=== PATIENT | male | born 2000 | race Caucasian/White ===

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

== ENCOUNTER 2021-11-22 02:36 | Emergency (ER) | payer BC ==
[~2021-11-22] VITALS: Ht 165.1 cm; Wt 74.4 kg
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
[2021-11-22] MEDS ORDERED: ONDANSETRON 4 MG TAB.RAPDIS ONE (03:59)
[2021-11-22] MEDS ORDERED: IBUPROFEN 400 MG TABLET ONE (03:59)
[2021-11-22] MEDS: IBUPROFEN 400 MG TABLET PO ONE (04:02)
[2021-11-22] MEDS: ONDANSETRON 4 MG TAB.RAPDIS SL ONE (04:02)
[2021-11-22 07:18] VITALS: BP 132/66
--- NOTE | 2021-11-22 07:18 | NUR ---
Patient discharged to home in stable condition. Written and verbal after care instructions given. Patient verbalizes understanding of instruction.
== END 2021-11-22 07:18 | disposition home or self-care (01) ==
LOC: ER 03:24
DX: S16.1XXA Strain of muscle, fascia and tendon at neck level, initial encounter (principal); K21.9 Gastro-esophageal reflux disease without esophagitis; F17.200 Nicotine dependence, unspecified, uncomplicated; V89.2XXA Person injured in unspecified motor-vehicle accident, traffic, initial encounter; Y93.89 Activity, other specified; Y92.89 Other specified places as the place of occurrence of the external cause; Y99.8 Other external cause status
CPT/HCPCS: 72050; 99283; Q0162; L0172

== ENCOUNTER 2022-04-16 20:35 | Emergency (ER) | payer BC ==
[~2022-04-16] VITALS: Ht 165.1 cm; Wt 68.0 kg
[2022-04-16 21:22] VITALS: BP 127/87
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
[2022-04-16] MEDS ORDERED: ONDA4TAB5 PO (21:44)
[2022-04-16] MEDS ORDERED: FAMO-131 PO (21:44)
[2022-04-16] MEDS ORDERED: ONDANSETRON 4 MG TAB.RAPDIS ONE (21:51)
[2022-04-16] MEDS ORDERED: ONDANSETRON 4 MG TAB.RAPDIS SL ONE (22:00)
== END 2022-04-16 21:59 | disposition home or self-care (01) ==
LOC: ER 20:41
DX: K21.9 Gastro-esophageal reflux disease without esophagitis (principal); R19.7 Diarrhea, unspecified; R11.0 Nausea; F17.200 Nicotine dependence, unspecified, uncomplicated
CPT/HCPCS: 99283; Q0162